=== PATIENT | male | born 1975 | race African-American/Black ===

== ENCOUNTER 2020-06-23 21:14 | Emergency (ER) | payer SELFPAY ==
[2020-06-23] MEDS ORDERED: HYZAAR 50-12.51 EACH PO (21:28)
[2020-06-23 22:50] VITALS: BP 153/95
== END 2020-06-23 22:56 | disposition home or self-care (01) ==
LOC: ED 21:14
DX: S80.02XA Contusion of left knee, initial encounter (principal); I10 Essential (primary) hypertension; Z88.8 Allergy status to other drugs, medicaments and biological substances; W01.198A Fall on same level from slipping, tripping and stumbling with subsequent striking against other object, initial encounter; Y92.009 Unspecified place in unspecified non-institutional (private) residence as the place of occurrence of the external cause

== ENCOUNTER 2022-03-05 23:10 | Emergency (ER) | payer OTHER ==
[~2022-03-05] VITALS: Ht 167.6 cm; Wt 109.1 kg
[~2022-03-05 23:10] MED LIST: HYZAAR 50-12.51 EACH PO
[2022-03-05 23:43] LABS: BASO # 0.03 K/mm3 (0.02-0.10); EOS # 0.12 K/mm3 (0.04-0.40); EOS % 1.4 % (0.0-4.0); HEMATOCRIT 46.7 % (42.0-52.0); LYMPH# 2.25 K/mm3 (1.50-4.00); MEAN CELL VOLUME 89 fl (78-100); MEAN CORPUSCULAR HEMOGLOBIN 29 pg (27-31); MEAN CORPUSCULAR HGB CONC 32 g/dL (33-37); MEAN PLATELET VOLUME 9.8 fl (7.4-10.4); MONO # 0.88 K/mm3 (0.20-0.80); NEU # 5.25 K/mm3 (1.40-6.50); PLATELET COUNT 223 K/mm3 (130-400); RED BLOOD COUNT 5.27 M/mm3 (4.20-5.60); RED CELL DISTRIBUTION WIDTH 11.7 % (11.5-14.5); WHITE BLOOD COUNT 8.5 K/mm3 (4.8-10.8)
[2022-03-05 23:55] LABS: ALBUMIN 4.4 g/dL (3.5-5.0); SODIUM 140 mmol/L (136-145)
[2022-03-05 23:57] LABS: GLUCOSE 96 mg/dL (75-110)
[2022-03-05 23:58] LABS: CARBON DIOXIDE 26 mmol/L (22-29)
[2022-03-05 23:59] LABS: PARTIAL THROMBOPLASTIN TIME 25.5 SECONDS (21.0-32.0); PROTHROMBIN TIME 10.2 SECONDS (9.0-12.0); TOTAL BILIRUBIN 0.5 mg/dL (0.2-1.2)
[2022-03-06 00:03] LABS: AST-SGOT 27 U/L (5-34)
[2022-03-06 00:04] LABS: ALT/SGPT 45 U/L (0-55)
[2022-03-06 00:21] LABS: TROPONIN-I < 0.030 ng/mL (<0.030)
[2022-03-06 01:08] VITALS: BP 142/96
== END 2022-03-06 01:08 | disposition home or self-care (01) ==
LOC: ED 23:10
PROVIDERS: Nurse Practitioner
DX: R07.89 Other chest pain (principal); I10 Essential (primary) hypertension; Z20.822 Contact with and (suspected) exposure to COVID-19